=== PATIENT | male | born 1995 | race Caucasian/White ===

== ENCOUNTER 2020-08-12 10:54 | Emergency (ER) | payer SELFPAY ==
[2020-08-12] MEDS ORDERED: FLONASE ALLERG9.9 ML NAS (12:22)
[2020-08-12] MEDS ORDERED: PREDNISONE20 M1 PO (12:22)
== END 2020-08-12 13:05 | disposition home or self-care (01) ==
LOC: ED 10:54
DX: J30.2 Other seasonal allergic rhinitis (principal); F17.200 Nicotine dependence, unspecified, uncomplicated